=== PATIENT | male | born 1970 | race Caucasian/White ===

== ENCOUNTER 2022-04-07 12:01 | Emergency (ER) | payer OTHER, SELFPAY ==
[2022-04-07 12:12] VITALS: BP 150/85; PULSE 85; RESP 20; TEMP 36.9; O2SAT 98
[2022-04-07 12:19] VITALS: BP 150/85; PULSE 85; RESP 20; TEMP 36.9; O2SAT 98
--- NOTE | 2022-04-07 12:55 | ED.EXTPRO ---
HPI - Extremity Problem General Chief complaint: Extremity Problem,Nontraumatic Stated complaint: Right Leg Swelling Time Seen by Provider: 04/07/22 12:55 Source: patient Mode of arrival: ambulatory Limitations: no limitations History of Present Illness HPI Narrative: 51-year-old male who presents to [facility] Related Data Home Medications Medication Instructions Recorded Confirmed sertraline 100 mg tablet (Zoloft) 100 mg PO DIRECTED 04/07/22 04/07/22 testosterone cypionate 200 mg/mL 200 mg IM DIRECTED 04/07/22 04/07/22 intramuscular oil Allergies Allergy/AdvReac Type Severity Reaction Status Date / Time Penicillins Allergy Mild Hives Verified 04/07/22 12:12 [facility] Past Medical History Medical History (Updated 09/26/19 @ 00:00 by Melisa Delatorre) Anxiety Surgical History Surgical History (Updated 09/25/19 @ 11:50 by Naveen Chavez, LEOPOLDO) History of orthopedic surgery Social History Social History (Updated 09/25/19 @ 11:50 by Naveen Chavez, LEOPOLDO) Smoking status: Current every day smoker Course Vital Signs Vital signs: Vital Signs Temperature 36.9 C 04/07/22 12:12 Pulse Rate 85 04/07/22 12:12 Respiratory Rate 20 04/07/22 12:12 Blood Pressure 150/85 H 04/07/22 12:12 Pulse Oximetry 98 04/07/22 12:12 Oxygen Delivery Room Air 04/07/22 12:12 Temperature 36.9 C 04/07/22 12:19 Pulse Rate 85 04/07/22 12:19 Respiratory Rate 20 04/07/22 12:19 Blood Pressure 150/85 H 04/07/22 12:19 Pulse Oximetry 98 04/07/22 12:19 Oxygen Delivery Room Air 04/07/22 12:19 Discharge Plan Discharge Prescriptions: No Action testosterone cypionate 200 mg/mL oil 200 mg IM DIRECTED sertraline [Zoloft] 100 mg tablet 100 mg PO DIRECTED dicyclomine 10 mg capsule 10 mg PO BID Qty: 60 2RF Follow-up/Referrals: Aditya Zambrano MD [Primary Care Provider] -
--- NOTE | 2022-04-07 13:03 | ED.GENADULT ---
HPI - General Adult General Chief complaint: Extremity Problem,Nontraumatic Stated complaint: Right Leg Swelling Time Seen by Provider: 04/07/22 12:55 Source: patient Mode of arrival: ambulatory Limitations: no limitations History of Present Illness HPI narrative: 51 year old male who presents to [facility] care with complaints of some swelling to his right lower leg proximal to ankle region for the past 3 days. Patient states no know injury to area, no redness, rash or warmth to area noted. Patient denies any pain or tenderness to his right calf region with no redness or warmth noted to calf. 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 He states that skin around swelling is itchy at times. Patient has had 3 prior surgeries to his right knee. MD complaint: swelling intermittent above right ankle Onset (ago): day(s) (3) Location: right and lower extremity (above right ankle swelling area) Severity scale (1-10): 2 Quality: aching Treatments prior to arrival: none Related Data Home Medications Medication Instructions Recorded Confirmed sertraline 100 mg tablet (Zoloft) 100 mg PO DIRECTED 04/07/22 04/07/22 testosterone cypionate 200 mg/mL 200 mg IM DIRECTED 04/07/22 04/07/22 intramuscular oil Allergies Allergy/AdvReac Type Severity Reaction Status Date / Time Penicillins Allergy Mild Hives Verified 04/07/22 12:12 Review of Systems Review of Systems: CONSTITUTIONAL: Denies fever, chills, or sweats. EYES: Denies visual changes, redness, or discharge. ENT: Denies rhinorrhea, congestion, sore throat, or otalgia. CARDIOVASCULAR: Denies chest pain, palpitations, positive for small amount of swelling above right ankle area no redness or rash or warmth.. RESPIRATORY: Denies cough or dyspnea. GASTROINTESTINAL: Denies abdominal pain, nausea, vomiting, or diarrhea. GENITOURINARY: Denies dysuria or hematuria. SKIN: Denies rash or itching. reports some itching to skin around swelling with no rash or redness noted. MUSCULOSKELETAL: Denies back pain, joint pain, reports 2/10 pain to area of swelling above right ankle with no redness or warmth or rash noted NEUROLOGIC: Denies headache, numbness, or weakness. PSYCHIATRIC: Positive for history of anxiety or depression. [facility] Past Medical History Medical History (Updated 04/08/22 @ 00:00 by Melisa Delatorre) Anxiety Surgical History Surgical History (Updated 04/08/22 @ 09:40 by Flores Tim NP) History of orthopedic surgery patella tendon repair X3 right knee History of shoulder surgery total right shoulder arthroplasty with augmented glenoid component 2019 Social History Social History (Updated 04/08/22 @ 09:30 by Flores Tim NP) Smoking status: Current every day smoker Substance use type: does not use Living arrangements: with family Gender identity (if verbalized by the patient): Male Comments At time of signature, agree with nursing past medical, surgical, social and family history. There is no relevant family history pertinent to the presenting complaint Exam Narrative: GENERAL: Well-appearing, well-nourished, and in no acute distress. HEAD: Normocephalic, atraumatic. EYES: PERRLA and EOMI. ENT: Nares clear, no rhinorrhea or epistaxis. Mucous membranes moist.TM's normal with good light reflex, throat pink with no lesions or exudates or tonsil enlargement NECK: Supple.no lymphadenopathy CHEST: Clear to auscultation. No respiratory distress.SAO2 98 % on room air, no tachypnea HEART: Regular rate and rhythm. No murmur heard. Normal peripheral pulses. ABDOMEN: Soft, nontender, nondistended, normal active bowel sounds. EXTREMITIES: Normal range of motion. No edema.Exception noted to mild swelling of right lower leg proximal to ankle no redness, warmth or any rash noted. Patient reports that has been occurring for 3 days and seems to occur after b
== END 2022-04-07 13:17 | disposition home or self-care (01) ==
PROVIDERS: Emergency Provider Registered Nurse; PCP Family Medicine Adolescent Medicine
DX: R60.0 Localized edema (principal); F17.200 Nicotine dependence, unspecified, uncomplicated; F41.9 Anxiety disorder, unspecified
CPT/HCPCS: 99211; G0463

== ENCOUNTER 2023-12-30 05:50 | Day surgery (SDC) | payer OTHER, SELFPAY ==
[2023-10-26 14:02] VITALS: BMI 31.0
[2023-12-08 13:55] VITALS: BMI 30.9
--- NOTE | 2023-12-29 11:17 | P.PNAN_ITS ---
Anes - Initial Pre Proc Eval Procedure: Operation Date: 12/30/23 07:30 Proposed Procedures p Screening Colonoscopy - Darren Brar MD Date/Time: 12/29/23 11:17 Surgeon: Darren Brar MD Pre Op Diagnosis: Neoplasm Screening Patient Data Age: 53 Gender: M Height: 1.75 m Weight: 95 kg Allergies Allergy/AdvReac Type Severity Reaction Status Date / Time Penicillins Allergy Mild Hives Verified 12/30/23 06:20 Home Medications Medication Instructions Recorded Confirmed Type testosterone cypionate 200 mg/mL 200 mg IM DIRECTED 04/07/22 12/30/23 History intramuscular oil sertraline 100 mg tablet (Zoloft) 150 mg PO DIRECTED #135 tabs 07/09/23 12/30/23 Rx Patient hx anesthesia problems: none Family hx anesthesia problems: none Results Review: All pre-operative results and documents have been reviewed as part of the pre- operative evaluation. [facility] Past Medical History Medical History (Updated 12/29/23 @ 11:17 by Mark Vela DO) Anxiety GERD (gastroesophageal reflux disease) Surgical History Surgical History (Updated 04/08/22 @ 09:40 by Flores Tim NP) History of orthopedic surgery patella tendon repair X3 right knee History of shoulder surgery total right shoulder arthroplasty with augmented glenoid component 2020 Social History Social History (Updated 04/08/22 @ 09:30 by Flores Tim NP) Years smoked: 20 Smoking status: Current every day smoker Tobacco type: cigarettes Alcohol intake: current Drinks per week: 6 Substance use: never Substance use type: does not use Living arrangements: with family Gender identity (if verbalized by the patient): Male Spiritual care concerns: No Anes - Eval Final PreProcedure Day of Procedure 12/29/23 11:17 Patient weight: obese Heart: regular rate and rhythm Lungs: clear to auscultation Airway: Mallampati scale class II Neurological: alert and oriented Last oral intake: >/= 8 hours ASA classification: II Emergent: no Anesthetic plan: proceed Anesthesia type and monitoring: general GIVS and standard monitoring Results Review: All pre-operative results and documents have been reviewed as part of the pre- operative evaluation. Informed Consent: The patient's anesthetic plan and its attendant risks and benefits were discussed with the patient/family/POA. Questions were solicited and answers provided to the satisfaction of the patient/family/POA.
[2023-12-30 06:23] VITALS: BP 121/90; PULSE 83; RESP 20; TEMP 36.7; O2SAT 98; BMI 31.0
[2023-12-30] MEDS: LACTATED RINGERS 1,000 ML 150 ML IV CONT (06:34)
--- NOTE | 2023-12-30 07:07 | P.HP_ITS ---
History of Present Illness History of Present Illness Consent: Risks, benefits, and alternatives have been discussed and questions answered. Patient agrees to proceed with procedure. Chief complaint: Neoplasm Screening Narrative: Markus Durán is a 53 year old male presents for screening colonoscopy. Patient's current weight appetite and bowel movements are normal. Patient is abdominal pain. He has had no bleeding. Family history is noncontributory. Review of Systems Review of Systems: Review of systems noncontributory. [facility] Past Medical History Medical History (Updated 12/30/23 @ 07:09 by Darren Barr MD) Anxiety GERD (gastroesophageal reflux disease) Surgical History Surgical History (Updated 04/08/22 @ 09:40 by Flores Tim NP) History of orthopedic surgery patella tendon repair X3 right knee History of shoulder surgery total right shoulder arthroplasty with augmented glenoid component 2019 Social History Social History (Updated 04/08/22 @ 09:30 by Flores Tim NP) Years smoked: 20 Smoking status: Current every day smoker Tobacco type: cigarettes Alcohol intake: current Drinks per week: 6 Substance use: never Substance use type: does not use Living arrangements: with family Gender identity (if verbalized by the patient): Male Spiritual care concerns: No Meds Home Medications and Allergies Home Medications Medication Instructions Recorded Confirmed Type testosterone cypionate 200 mg/mL 200 mg IM DIRECTED 04/07/22 12/30/23 History intramuscular oil sertraline 100 mg tablet (Zoloft) 150 mg PO DIRECTED #135 tabs 07/09/23 12/30/23 Rx Allergies Allergy/AdvReac Type Severity Reaction Status Date / Time Penicillins Allergy Mild Hives Verified 12/30/23 06:20 Vital Signs Vital Signs - 24 hr 12/30/23 06:23 Temperature 98.1 F Pulse Rate 83 Respiratory Rate 20 Blood Pressure 121/90 Pulse Oximetry 98 Oxygen Delivery Room Air Exam Narrative: Physical exam reveals patient to be alert. Vital signs stable. HEENT exam is unremarkable. Patient is anicteric. Lungs are clear to auscultation and percussion is without murmur or extra sounds. Abdomen bowel sounds are present soft nontender with no organomegaly. digital external rectal exam is normal. Assessment and Plan Assessment and plan (1) Encounter for screening colonoscopy: Code(s): Z12.11 - Encounter for screening for malignant neoplasm of colon Status: Acute Assessment and Plan: Patient presents today for screening colonoscopy. He appears to be at average risk for colon polyps.
[2023-12-30 07:48] VITALS: BP 112/73; PULSE 80; RESP 16; O2SAT 97
[2023-12-30 07:58] VITALS: BP 119/82; PULSE 84; RESP 16; O2SAT 97
[2023-12-30 08:08] VITALS: BP 120/82; PULSE 73; RESP 16; O2SAT 97
--- NOTE | 2023-12-30 10:11 | WPDANESPN ---
Anes - Prog Note Post-Op Date/Time: 12/30/23 10:11 Cardiovascular status: normal Respiratory status: normal Airway patency: baseline Mental status: baseline Post-Op hydration status: normal Vital Signs: Last Vital Signs Temp 36.7 C 12/30/23 06:23 Pulse 73 12/30/23 08:08 Resp 16 12/30/23 08:08 BP 120/82 12/30/23 08:08 Pulse Ox 97 12/30/23 08:08 O2 Del Method Room Air 12/30/23 08:08 Pain Score (VAS): 0 I/O: Intake & Output 12/29/23 12/30/23 12/30/23 23:59 07:59 15:59 Intake Total 400 100 Balance 400 100 Post-procedural complaints: none Patient Feedback: Patient satisfied with anesthetic care. Other Findings: Patient vital signs back to baseline. Patient denies nausea and vomiting. Patient's pain under control. Patient OK for discharge.
== END 2023-12-30 08:18 | disposition home or self-care (01) ==
PROVIDERS: PCP Family Medicine Adolescent Medicine; Visit Provider Internal Medicine Gastroenterology
PROC: 0DJD8ZZ Inspection of Lower Intestinal Tract, Via Natural or Artificial Opening Endoscopic (ICD-10-PCS; CPT 45378; principal; 2023-12-30 07:30)
DX: Z12.11 Encounter for screening for malignant neoplasm of colon (principal); D12.8 Benign neoplasm of rectum; K64.8 Other hemorrhoids
CPT/HCPCS: 45385

== ENCOUNTER 2023-12-30 08:16 | Outpatient (NON) | payer OTHER, SELFPAY | END 2023-12-30 08:17 | disposition home or self-care (01) | PROVIDERS: PCP Family Medicine Adolescent Medicine; Visit Provider Internal Medicine Gastroenterology | DX: K62.1 Rectal polyp (principal) | CPT/HCPCS: 88305 ==

== ENCOUNTER 2024-08-09 08:16 | Outpatient (CLI) | payer OTHER, SELFPAY ==
--- NOTE | ~2024-08-09 | CT_ITS ---
CT Scan of the Chest without Contrast: Clinical Indication: Lung cancer screening, nicotine dependence Technique: Contiguous sections were acquired throughout the chest without intravenous contrast. Dose reduction technique was used on this scan by utilizing automated exposure control and iterative recon struction technique. The dose-length product (DLP) was 214.34 mGy-cm. Findings: There is no evidence of any significant mediastinal, hilar or axillary lymphadenopathy. The mediastin al soft tissues appear normal. There is no evidence of pleural or pericardial effusion. 4 mm nodule noted superior segment left lower lobe. No other pulmonary nodule seen. Images through the upper abdomen reveal no abnormalities. Impression: Lung RADS 2: Benign appearance. 12 month follow-up screening CT advised. Reviewed, dictated and finalized at location . Impression: Lung RADS 2: Benign appearance. 12 month follow-up screening CT advised.
== END 2024-08-09 08:17 | disposition home or self-care (01) ==
LOC: MICIMG 08:17
PROVIDERS: PCP Nurse Practitioner Family; Visit Provider Nurse Practitioner Family
DX: Z12.2 Encounter for screening for malignant neoplasm of respiratory organs (principal); F17.210 Nicotine dependence, cigarettes, uncomplicated
CPT/HCPCS: 71271

== ENCOUNTER 2025-06-22 08:37 | Emergency (ER) | payer OTHER, SELFPAY ==
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
--- OUTSIDE RECORDS SUMMARY | 2025-06-22 08:41 | XMS_ITS | Encounter Summary ---
Author Organization [facility] Address [address] [place] [address] Care Team Providers Care Senior Principal Process Engineer Name Role Phone Queta Adan NP Primary Care Provider [phone] Reason for Referral * Diagnostic Imaging (Routine) - Closed Specialty Diagnoses / Procedures Referred By Brian t Referred To Contact Diagnoses Left shoulder pain, unspecified chronicity Procedures XR Shoulder Left 3 Views Handy Grider PA [address] [place] [address] [address] [place] [address] Phone: tel: fax: [address] [phone] Referral ID Status Reason Start Date Expiration Date Visits Re quested Visits Authorized [id number] Closed 06/15/2025 07/15/2026 1 1 Reason for Visit * Diagnostic Imaging (Routine) - Closed Specialty Diagnoses / Procedures Referred By Brian t Referred To Contact Diagnoses Left shoulder pain, unspecified chronicity Procedures XR Shoulder Left 3 Views Handy Grider PA [facility] [address] GARDUN[address] [place] [address] Phone: tel: fax: [address] [phone] Referral ID Status Reason Start Date Expiration Date Visits Re quested Visits Authorized [id number] Closed 06/15/2025 07/15/2026 1 1 Encounter Details Date Type Department Care Team (Latest Contact Info) Description 06/21/2025 1:42 PM CDT - 06/21/2025 11:59 PM CDT Hospital Encounter [facility] Diag Imaging [address] [place] [address] Left shoulder pain, unspecified chronicity Discharge Disposition: Discharge to home or self care Social History Tobacco Use Types Packs/Day Years [...] on file 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 Gender Identity Not on file Sexual Orientation Not on file 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 file Not on file Not o n file documented as of this encounter Medications at Time of Discharge anastrozole (ARIMIDEX) 1 mg tablet 05/09/2025 armodafiniL (NUVIGIL) 150 mg tablet 05/16/2025 desvenlafaxine ER (PRISTIQ) 25 mg tablet extended release 24 hr 24 hr tablet 05/03/2025 meloxicam (MOBIC) 15 mg tabletIndications: Left shoulder pain, unspecified chronicity Take 1 tablet (15 mg total) by mouth daily 30 tablet 1 06/21/2025 07/21/2025 testosterone cypionate (DEPO-TESTOTERONE) 200 mg/mL injection 08/26/2022 documented as of this encounter Discharge Disposition Disposition Code Departure Means Destination Discharge to home or self care documented in this encounter Plan of Treatment Pending Results Name Type Priority Associated Diagnoses Date /Time XR Shoulder Left 3 Views Imaging Schedule Routine, Read Routine (OP Routine) Left shoulder pain, unspecified chronicity 06/21/2025 1:47 PM CDT Scheduled Orders Name Type Priority Associated Diagnoses Orde r Schedule XR Shoulder Left 3 Views Imaging Schedule Routine, Read Routine (OP Routine) Left shoulder pain, unspecified chronicity Once for 1 Occurrences starting 06/21/2025 until 06/21/2025 documented as of this encounter Visit Diagnoses Diagnosis Left shoulder pain, unspecified chronicity documented in this encounter Care Teams Senior Principal Process Engineer Relationship Specialty Start Date End Date Queta Adan NP [address] [address] PCP - General Internal Medicine 05/24/25 documented as of this encounter
--- OUTSIDE RECORDS SUMMARY | 2025-06-22 08:41 | XMS_ITS | Encounter Summary ---
Author Organization [facility] Healthcare Address [address] [place] [address] Care Team Providers Care Order Worker Name Role Phone Queta Adan NP Primary Care Provider [phone] Reason for Referral * Diagnostic Imaging (Routine) - Closed Specialty Diagnoses / Procedures Referred By Brian vargsa Referred To Contact Diagnoses Left shoulder pain, unspecified chronicity Procedures XR Shoulder Left 3 Views Handy Grider PA [facility] [facility] [address] [place] [address] Phone: tel: fax: [address] [address] Referral ID Status Reason Start Date Expiration Date Visits Re quested Visits Authorized [id number] Closed 06/15/2025 07/15/2026 1 1 Reason for Visit * Reason Comments Pain * Consultation (Routine) - Closed Specialty Diagnoses / Procedures Referred By Brian vargas Referred To Contact Orthopedic Surgery Diagnoses Chronic left shoulder pain Queta Adan NP [address] [address] Phone: tel: fax: Johnathon Harmon MD [address] [facility] [address] [address] [place] [address] Phone: tel: fax: Referral ID Status Reason Start Date Expiration Date V isits Requested Visits Authorized [id number] Closed Specialty Services Required 05/24/2025 06/23/2026 1 1 Encounter Details Date Type Department Care Team (Late st Contact Info) Description 06/21/2025 1:45 PM CDT Office Visit [facility] Orthopedics and Sports Medicine [address] [facility] [address] [place] [phone] Handy Grider PA [facility] [address] [place] [address] Left shoulder pain, unspecified chronicity (Primary Dx); Osteoarthritis of left glenohumeral joint Social History Tobacco Use Types Packs/Day Years [...] on file Legal Sex 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 Gender Identity Not on file Sexual Orientation Not on file 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 Not on file Not on file Not o n file documented as of this encounter Last Filed Vital Signs Vital Sign Reading Time Taken Comments Blood Pressure - - Pulse - - Temperature - - Respiratory Rate - - Oxygen Saturation - - Inhaled Oxygen Concentration - - Weight 97.5 kg (215 lb) 06/21/2025 2:00 PM CDT Height 175.3 cm (5' 9) 06/21/2025 2:00 PM CDT Body Mass Index 31.75 06/21/2025 2:00 PM CDT documented in this encounter Ordered Prescriptions Prescription Sig Dispense Quantity Refills Last Filled Start Date End Date meloxicam (MOBIC) 15 mg tabletIndications: Left shoulder pain, unspecified chronicity Take 1 tablet (15 mg total) by mouth daily 30 tablet 1 06/21/2025 07/21/2025 documented in this encounter Progress Notes * Handy Grider PA - 06/21/2025 1:45 PM CDT Images from the original note were not included. Subjective/Objective Patient ID: Markus Durán is a 55 y.o. male. Chief Complaint Patient presents with Left Shoulder - Pain HPI: This is a 55-year-old male patient new to the clinic with a history of left shoulder pain. 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 He recalls no specific injuries. He did have a right shoulder arthroplasty for severe primary osteoarthritis in the right shoulder. The patient states it is currently tolerable with the conservative management but he wanted to check to see if he had arthritis in the shoulder like he did on the right side. -Right total shoulder arthroplasty on [address] Nithin Morris Ht 175.3 cm (5' 9) Wt 97.5 kg (215 lb) BMI 31.75 kg/m?? Current Outpatient Medications Medication Sig Dispense Refill anastrozole (ARIMIDEX) 1 mg tablet armodafiniL (NUVIGIL) 150 mg tablet desvenlafaxine ER (PRISTIQ) 25 mg tablet extended release 24 hr 24 hr tablet methylPREDNISolone (MEDROL DOSEPACK) 4 mg Dosepack Take as directed on package. 21 tablet 0 testosterone cypionate (DEPO-TESTOTERONE) 200 mg/mL injection No current facility-administered medications for this visit. Review of Systems: Review of Systems Examination Vital signs reviewed. General Appearance: The patient is in no acute distress. Alert and oriented X3. Respiratory: Respirations are even and unlabored. The patient does not use accessory muscles of respiration. Psych: The patient is pleasant and cooperative and acts appropriately. Musculoskeletal: The skin over the left shoulder shows no erythema, no ecchymosis, no edema. The patient can forward flex the shoulder to 140??. He has 5/5 strength and no pain to thumbs-down resistance similar findings to [facility]'s testing. He can externally rotate to 45??. He has 5/5 strength andno pain to resistance. Negative belly press test. The patient can internally rotate to about L3-4 but this does cause him a great deal of discomfort. Good roll forming supervisor strength. Positive radial pulse. Neurologically grossly intact. X-rays of the left shoulder from 21 June 2025 shows: [id number] osteoarthritic changes of the glenohumeral joint Procedures (M25.512) Left shoulder pain, unspecified chronicity (primary encounter diagnosis) Plan: XR Shoulder Left 3 Views, meloxicam (MOBIC) 15 mg tablet (M19.012) Osteoarthritis of left glenohumeral joint Diagnoses and all orders for this visit: Left shoulder pain, unspecified chronicity (Primary) - XR Shoulder Left 3 Views; Future - meloxicam (MOBIC) 15 mg tablet; Take 1 tablet (15 mg total) by mouth daily Osteoarthritis of left glenohumeral joint Other orders - Ambulatory referral to Orthopedic Surgery Assessment/Plan We discussed the x-rays and options. I will write the patient a prescription for meloxicam 15 mg shireen taken once daily as needed, number 30, 1 refill. Tylenol and liberal icing. The patient can certainly follow up and consider a cortisone injection if so desired. I would recommend fluoroscopicallyguided. He states he is not ready for any surgical intervention until he retires in a couple of year s.. Follow up sooner as needed. Handy Grider PA-C documented in this encounter Plan of Treatment [...] (OP Routine) Left shoulder pain, unspecified chronicity Expected: 06/15/2025, Expires: 06/15/2026 documented as of this encounter Visit Diagnoses Diagnosis Left shoulder pain, unspecified chronicity- Primary Osteoarthritis of left glenohumeral joint documented in this encounter Discontinued Medications Medication Sig Discontinue Reason Start Date End Da te methylPREDNISolone (MEDROL DOSEPACK) 4 mg DosepackIndications:Chr onic left shoulder pain Take as directed on package. Patient Reported 05/24/2025 06/21/2025 documented as of this encounter Orders Outpatient Referral Count Last Ordered Date Fir st Ordered Date AMB REFERRAL TO ORTHOPEDIC SURGERY 1 2024 documented in this encounter Care Teams Order Worker Relationship Specialty Start Date End Date Queta Adan NP [address] [facility] [address] [place] [address] PCP - General Internal Medicine 05/24/25 documented as of this encounter
--- OUTSIDE RECORDS SUMMARY | 2025-06-22 08:41 | XMS_ITS | Encounter Summary ---
Author Organization [facility] Healthcare Address [address] [place] [address] Care Team Providers Care Recreation Supervisor Name Role Phone Queta Adan SOFTWARE ANALYST Primary Care Provider [phone] Encounter Details Date Type Department Care Team (Late st Contact Info) Description 06/12/2025 Results Follow-Up [facility] Medical Group Family Medicine [address] [facility] [address] [place] [address] Queta Adan, SOFTWARE ANALYST [address] [facility] [address] [place] [address] PSA screen, Lipid panel, TSH, Additional followed-up results: 2 Social History Tobacco Use Types Packs/Day Years [...] on file 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 Gender Identity Not on file Sexual Orientation Not on file documented as of this encounter Plan of Treatment Scheduled Orders Name Type Priority Associated Diagnoses Orde r Schedule Hemoglobin A1c Lab Routine Prediabetes Expected: 06/13/2025, Expires: 06/13/2026 documented as of this encounter Visit Diagnoses Diagnosis Prediabetes- Primary Other abnormal glucose documented in this encounter Care Teams Recreation Supervisor Relationship Specialty Start Date End Date Queta Adan NP [address] [facility] [address] [place] [address] PCP - General Internal Medicine 05/24/25 documented as of this encounter
--- NOTE | 2025-06-22 08:44 | ED_ITS ---
HPI - URI/Sore Throat General Chief Complaint: Upper Respiratory Infection Stated Complaint: Sore Throat Time Seen by Provider: 06/22/25 08:44 Source: patient Mode of arrival: ambulatory Limitations: no limitations History of Present Illness HPI Narrative: 55 yo M presents with nasal/sinus congestion, headaches, fatigue, low grade fever, sore throat for 6 days. Not taking any OTC meds to treat symptoms. Denies N/v/D. No SOB/CP. All systems reviewed and negative except as noted above. Related Data Home Medications ?Medication ?Instructions ?Recorded ?Confirmed ?Last Taken ?Type clomiphene citrate 50 mg tablet 50 mg PO .twice weekly 04/12/24 04/12/24 Unknown History (Clomid) testosterone cypionate 200 mg/mL 250 mg IM DIRECTED 04/12/24 04/12/24 Unknown History intramuscular oil Allergies Allergy/AdvReac Type Severity Reaction Status Date / Time Penicillins Allergy Mild Hives Verified 06/22/25 08:48 cefazolin (From Anc) Allergy Fever Verified 06/22/25 08:48 PMFSH Past Medical History Medical History (Updated 06/22/25 @ 09:10 by Lesley Modi NP) GERD (gastroesophageal reflux disease) Anxiety Surgical History Surgical History History of shoulder surgery (03/2020) total right shoulder arthroplasty with augmented glenoid component 2019 History of orthopedic surgery (2018) patella tendon repair X3 right knee Family History Family History (Updated 04/12/24 @ 10:38 by Radha Mayberry APRN) Other Heart disease Social History Social History (Updated 04/12/24 @ 11:03 by Radha Mayberry APRN) Smoking packs per day: 1 Smoking cigarettes per day: 20.0 Years smoked: 21 Smoking pack-years: 21.00 Smoking status: Current every day smoker Tobacco type: cigarettes Alcohol intake: current Drinks per week: 6 Substance use: never Substance use type: does not use Living arrangements: with family Gender identity (if verbalized by the patient): Male Spiritual care concerns: No Comments At time of signature, agree with nursing past medical, surgical, social and family history. There is no relevant family history pertinent to the presenting complaint. Exam Narrative: GENERAL: This is a well-nourished, well-developed patient, in no apparent distress. HEAD: normocephalic, atraumatic. EYES: PERRL. Sclera clear/white. Vision is grossly intact. EARS: External ears normal, auditory canals clear and without drainage, TMs normal without perforation. Hearing grossly intact. NOSE: External nose normal with Erythema with. When drainage to bilateral nares THROAT: Mucous membranes moist, mild erythema postnasal drainage NECK: Neck supple, non-tender without lymphadenopathy, masses or thyromegaly. CARDIOVASCULAR: Regular rate and rhythm without murmurs, gallops, or rubs. RESPIRATORY: Clear to auscultation. Breath sounds equal bilaterally. No wheezes, rales, or rhonchi. SKIN: warm, Dry, intact with no suspicious lesions or rash, good texture and turgor. NEURO: awake, alert, and oriented to person, place and time. There were no obvious focal neurologic abnormalities. EXTREMITIES: No joint tenderness, effusion, or edema noted. Course Course Level of Care: Express Care Visit Vital Signs Vital signs: Vital Signs Temperature 36.4 C L 06/22/25 08:45 Pulse Rate 83 06/22/25 08:45 Respiratory Rate 16 06/22/25 08:45 Blood Pressure 133/82 06/22/25 08:45 Pulse Oximetry 100 06/22/25 08:45 Oxygen Delivery Room Air 06/22/25 08:45 Temperature 36.4 C L 06/22/25 08:45 Pulse Rate 83 06/22/25 08:45 Respiratory Rate 16 06/22/25 08:45 Blood Pressure 133/82 06/22/25 08:45 Pulse Oximetry 100 06/22/25 08:45 Oxygen Delivery Room Air 06/22/25 08:45 reviewed MDM - URI/Sore Throat MDM Narrative Medical decision making narrative: negative COVID, influenza and strep. Strep culture ordered. Will treat patient with antibiotic for bacterial sinusitis due to duration of symptoms and exam findings. Patient agrees with plan of care. Differential Diagnosis Differential diagnosis: Likely upper respiratory infection, sinusitis and pharyngitis Lab Data Labs: Lab Results 06/22/25 06/22/25 Range/Units 08:54 09:12 POC Influenza A Ag Negative (Negative) POC Influenza B Ag Negative (Negative) POC Grp A Strep Screen Negative (Negative) Discharge Plan Discharge Clinical Impression: Acute bacterial sinusitis Patient Disposition: Home Condition: Stable Instructions: Antibiotic Form, Sinusitis (ED) Additional Instructions: your COVID, influenza and strep test were negative today. Take antibiotic as prescribed until gone. Drink at least 64 oz of water a day. See your doctor if symptoms are not improving. Patient Language: Swedish Prescriptions: New doxycycline hyclate 100 mg capsule 100 mg PO BID 7 Days Qty: 14 0RF No Action testosterone cypionate 200 mg/mL oil 250 mg IM DIRECTED Rx Instructions: wednesday clomiphene citrate [Clomid] 50 mg tablet 50 mg PO .twice weekly Follow-up/Referrals: Antionette,YAIMA Birch [Primary Care Provider] - Time of Disposition: 09:11
[2025-06-22 08:45] VITALS: BP 133/82; PULSE 83; RESP 16; TEMP 36.4; O2SAT 100
[2025-06-22 08:56] LABS: EDSTREPNEGPOS1 Negative (Negative)
[2025-06-22 09:14] LABS: EDINFLUASCREEN Negative (Negative); EDINFLUBSCREEN Negative (Negative)
== END 2025-06-22 09:18 | disposition home or self-care (01) ==
PROVIDERS: Emergency Provider Nurse Practitioner Family; PCP Nurse Practitioner Family
DX: J01.90 Acute sinusitis, unspecified (principal); B96.89 Other specified bacterial agents as the cause of diseases classified elsewhere; F17.210 Nicotine dependence, cigarettes, uncomplicated
CPT/HCPCS: 87081; 87804; 87880; 99213; G0463

== ENCOUNTER 2025-08-13 09:38 | Outpatient (CLI) | payer OTHER, SELFPAY ==
--- NOTE | ~2025-08-13 | CT_ITS ---
EXAMINATION:CT lung screening DATE: 08/13/2025 09:53 INDICATION: Personal history of nicotine dependence. TECHNIQUE: Computed tomography (CT) of the chest was performed without intravenous contrast. Automated exposure control and iterative reconstruction technique were employed. The dose-length product (DLP) was 60.00 mGy-cm. COMPARISON: Chest CT 08/09/2024 FINDINGS: There is a 3 mm nodule in right middle lobe. There is a 2 mm nodule in right upper lobe. No pleural effusion. The heart size is normal. No pericardial effusion. There is a right shoulder arthroplasty. There is mild thoracic spondylosis. There is mild chronic height loss of multiple vertebral bodies. IMPRESSION: 1. Lung-RADS category 2: Benign appearance or behavior. Continue annual screening with noncontrast low-dose chest CT in 12 months. Reviewed, dictated and finalized at location E. IMPRESSION: 1. Lung-RADS category 2: Benign appearance or behavior. Continue annual screeni ng with noncontrast low-dose chest CT in 12 months.
--- OUTSIDE RECORDS SUMMARY | 2025-08-13 10:32 | XMS_ITS | Clinical Summary ---
Author Organization [facility] Address [facility] [place] [address] Care Team Providers Care Trim Setter Helper Name Role Phone Aditya Zambrano MD Primary Care Provider [phone] Allergies Active Allergy Reactions Criticality Noted Date [...] 19+ 3-dose series) 1991 Pneumococcal Vaccine: 50+ Years (1 of 1 - PCV) 2022 Zoster Vaccines (1 of 2) 2022 COVID-19 Vaccine (1 - season) 2025 Influenza Adult (#1) 2025 08/09/2019, 08/10/2016, 08/28/2015, Additional history exists DTaP, Tdap and Td Vaccines (2 - Td or Tdap) 08/26/2032 08/26/2022 Meningococcal B Vaccine Aged Out No l onger eligible based on patient's age to complete this topic Meningococcal Vaccine Aged Out No alin hector eligible based on patient's age to complete this topic RSV Immunizations Under 20 Months Aged Out No longer eligible based on patient's age to complete this topic Insurance [facility] Care Teams Trim Setter Helper Relationship Specialty Start Date End Date Aditya Zambrano MD [address] [address] PCP - General FAMILY PRACTICE 07/11/24
--- OUTSIDE RECORDS SUMMARY | 2025-08-13 10:32 | XMS_ITS | Encounter Summary ---
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 Gender Identity Not on file Sexual Orientation Not on file documented as of this encounter Plan of Treatment Scheduled Orders Name Type Priority Associated Diagnoses Orde r Schedule Hemoglobin A1c Lab Routine Prediabetes Expected: 06/13/2025, Expires: 06/13/2026 documented as of this encounter Visit Diagnoses Diagnosis Prediabetes- Primary Other abnormal glucose documented in this encounter Care Teams Time Clock Inspector Relationship Specialty Start Date End Date Queta Adan NP [address] [facility] [address] [place] [address] PCP - General Internal Medicine 05/24/25 documented as of this encounter
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
== END 2025-08-13 09:39 | disposition home or self-care (01) ==
LOC: CHSIMG 09:40
PROVIDERS: PCP Nurse Practitioner Family; Visit Provider Nurse Practitioner Family
DX: Z12.2 Encounter for screening for malignant neoplasm of respiratory organs (principal); Z87.891 Personal history of nicotine dependence
CPT/HCPCS: 71271

== ENCOUNTER 2025-08-20 10:35 | Emergency (ER) | payer OTHER, SELFPAY ==
[2025-08-20 10:40] VITALS: BP 141/84; PULSE 95; RESP 20; TEMP 36.8; O2SAT 98
--- NOTE | 2025-08-20 10:45 | ED.URI ---
HPI - URI/Sore Throat General Chief Complaint: Upper Respiratory Infection Stated Complaint: cold/flu Time Seen by Provider: 08/20/25 10:46 Source: patient, RN notes reviewed and old records reviewed Mode of arrival: ambulatory Limitations: no limitations History of Present Illness HPI Narrative: 55 year old male presents to [facility] care with complaints of 2 week duration of chest congestion with cough, sinus congestion with drainage and sinus pressure and headaches intermittently. Patient reports that he has dry cough especially at night. He states that he has been taking some DayQuil during the day and also some Ibuprofen. Patient states some low grade fevers which are intermittent. Patient is daily smoker.He reports that he is going on hunting trip this weekend and wants to be swabbed to make sure he doesn't have something contagious. MD elicited complaint: cough, rhinorrhea and nasal congestion Onset (ago): week(s) (2) Severity: moderate Pain scale (0-10): 2 Description of mucous: clear Able to tolerate fluids by mouth: Yes Treatments prior to arrival: ibuprofen and other (Dayquil) Related Data Home Medications ?Medication ?Instructions ?Recorded ?Confirmed ?Last Taken ?Type clomiphene citrate 50 mg tablet 50 mg PO .twice weekly 04/12/24 04/12/24 Unknown History (Clomid) testosterone cypionate 200 mg/mL 250 mg IM DIRECTED 04/12/24 04/12/24 Unknown History intramuscular oil anastrozole 1 mg tablet mg 08/20/25 Unknown History desvenlafaxine succinate 100 mg mg PO 08/20/25 Unknown History tablet,extended release 24 hr Allergies Allergy/AdvReac Type Severity Reaction Status Date / Time Penicillins Allergy Mild Hives Verified 08/20/25 10:49 cefazolin (From [facility]) Allergy Fever Verified 08/20/25 10:49 Review of Systems Review of Systems: CONSTITUTIONAL: Reports malaise, chills, sweats, low grade fever. EYES: Denies visual changes, redness, or discharge. ENT: Reports rhinorrhea, congestion, sinus pressure, no otalgia and positive for some sore throat. CARDIOVASCULAR: Denies chest pain, palpitations, or edema. RESPIRATORY: Reports cough.? Denies dyspnea. GASTROINTESTINAL: Denies abdominal pain, nausea, vomiting, diarrhea SKIN: Denies rash or itching. MUSCULOSKELETAL: Denies myalgia. NEUROLOGIC: Positive for headache. All systems reviewed & are unremarkable except as noted in HPI and below PMFSH Past Medical History Medical History GERD (gastroesophageal reflux disease) Anxiety Surgical History Surgical History History of shoulder surgery (03/2020) total right shoulder arthroplasty with augmented glenoid component 2019 History of orthopedic surgery (2018) patella tendon repair X3 right knee Family History Family History Other Heart disease Social History Social History Smoking packs per day: 1 Smoking cigarettes per day: 20.0 Years smoked: 21 Smoking pack-years: 21.00 Smoking status: Current every day smoker Tobacco type: cigarettes Alcohol intake: current Drinks per week: 6 Substance use: never Substance use type: does not use Living arrangements: with family Gender identity (if verbalized by the patient): Male Spiritual care concerns: No Comments At time of signature, agree with nursing past medical, surgical, social and family history. There is no relevant family history pertinent to the presenting complaint Exam Narrative: GENERAL: Well-appearing, well-nourished, and in no acute distress. HEAD: Normocephalic EYES: PERRLA, conjunctivae clear ENT: Nares clear, turbinates edematous and erythematous, clear discharge. Mucous membranes moist. TM pearly markham with dull light reflex bilaterally; no tragal tenderness. Oropharynx erythematous without lesions. Tonsils not enlarged and without exudate, no drooling, no hoarseness, no trismus, uvula midline, post nasal drainage NECK: Supple. No lymphadenopathy CHEST: Clear to auscultation, breath sounds equal. No wheezing, rhonchi, rales, or stridor. No respiratory distress, speaks in full sentences. dry cough especially at night, SAO2 98% on room air HEART: Regular rate and rhythm. No murmur heard. SKIN: Warm, dry, no rash. NEURO: Alert and oriented x3. PSYCH: Normal mood and affect Course Course Emergency Course: Patient is aware of diagnosis, understands and agrees to treatment plan.? Anticipatory guidance given.? Patient agrees to follow-up as directed and is aware of reasons to seek care at the emergency department. Portions of this record may have been created with voice recognition software Level of Care: Express Care Visit Vital Signs Vital signs: Vital Signs Temperature 36.8 C 08/20/25 10:40 Pulse Rate 95 08/20/25 10:40 Respiratory Rate 20 08/20/25 10:40 Blood Pressure 141/84 H 08/20/25 10:40 Pulse Oximetry 98 08/20/25 10:40 Oxygen Delivery Room Air 08/20/25 10:40 Temperature 36.8 C 08/20/25 10:40 Pulse Rate 95 08/20/25 10:40 Respiratory Rate 20 08/20/25 10:40 Blood Pressure 141/84 H 08/20/25 10:40 Pulse Oximetry 98 08/20/25 10:40 Oxygen Delivery Room Air 08/20/25 10:40 Reviewed MDM - URI/Sore Throat MDM Narrative Medical decision making narrative: Differential diagnosis considered: Jean virus, strep pharyngitis, allergic rhinitis, upper respiratory tract infection, sinusitis, rhinosinusitis, nasopharyngitis. viral pharyngitis, otitis media, otitis externa, pneumonia, bronchitis, viral cough syndrome, viral syndrome, and influenza.? Exam findings show no acute concerns or changes; patient is non-toxic appearing and is in no distress.? Patient is appropriate for outpatient treatment and follow-up. Differential Diagnosis Differential diagnosis: Likely upper respiratory infection, sinusitis, viral infection, influenza, pharyngitis and other (cough and congestion, COVID) Medical Records Attestation: I reviewed the patient's medical records. Lab Data Attestation: I reviewed the patient's lab results. Lab results narrative: strep screen negative, culture sent, COVID antigen negative,Influenza A negative, Influenza B negative Labs: Lab Results 08/20/25 08/20/25 Range/Units 10:58 11:05 POC Influenza A Ag Negative (Negative) POC Influenza B Ag Negative (Negative) POC SARS CoV-2 Ag Negative (Negative) POC Grp A Strep Screen Negative (Negative) reviewed Critical Care Time Critical Care Time Critical Care Time: No Discharge Plan Discharge Clinical Impression: Cough in adult patient Sinusitis Qualifiers: Sinusitis location: pansinusitis Chronicity: acute Recurrence: non-recurrent Qualified Code(s): J01.40 - Acute pansinusitis, unspecified Patient Disposition: Home Condition: Stable Instructions: Antibiotic Form, Sinusitis (ED), Acute Cough (ED) Additional Instructions: Increase fluids especially juices and water Vvyk-onh-wpwvfci cough and cold medicine of your choice for your symptoms Zyrtec, Claritin or Romina daily Steroids as directed--take with food heat to the face 20-30 minutes 4-6 times a day for pain Salt water gargles, throat lozenges or throat sprays as desired Antibiotic as directed--finished the medication If your symptoms persist, change or worsen significantly before you can contact your personal physician then please, without delay, go to the emergency department for further evaluation. Follow-up with PCP in 7-10 days or sooner if needed Follow up with PCP soon in regards to your blood pressure which is elevated above threshold for referral. Blood pressure above 120/80 may indicate pre-hypertension.141/84 Patient Language: Divehi Prescriptions: New doxycycline hyclate 100 mg tablet 100 mg PO BID Qty: 14 0RF prednisone 20 mg tablet 40 mg PO DAILY 5 Days Qty: 10 0RF No Action anastrozole 1 mg tablet desvenlafaxine succinate 100 mg tablet extended release 24 hr PO testosterone cypionate 200 mg/mL oil 250 mg IM DIRECTED Rx Instructions: wednesday clomiphene citrate [Clomid] 50 mg tablet 50 mg PO .twice weekly Follow-up/Referrals: Britni,YAIMA Birch [Primary Care Provider, Unknown] Time of Disposition: 11:23 Quality Keri Coma Scale Eyes: Open Verbal: Oriented and Alert Motor: Follows Commands Keri Coma Total Score: 15
[2025-08-20 11:01] LABS: EDSTREPNEGPOS1 Negative (Negative)
[2025-08-20 11:07] LABS: EDCOVIDSCREEN Negative (Negative); EDINFLUASCREEN Negative (Negative); EDINFLUBSCREEN Negative (Negative)
--- OUTSIDE RECORDS SUMMARY | 2025-08-20 11:43 | XMS_ITS | Clinical Summary ---
Author Organization [facility] Address [address] [place] [address] Care Team Providers Care Nail Tech Name Role Phone Unknown, Provider Primary Care Provider Unavaila ble Source Comments [facility],non-owned Affiliates and Associated Physician Practices is amultiple site organization consisting of ambulatory clinics and hospital sitesin [place], [place], [place] and [place]. This disclosure is being madepursuant to the Care Everywhere program and may not contain all information available regarding this patient. 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 Low testosterone in male Overview (09/04/2021): Mantality Stress Encounters Date Type Department Care Team Description 07/25/2025 Orders Only [facility] [place] [id number] [id number] Mike Crabtree Annual physical exam - [facility], [place] from Last 3 Months Immunizations Immunization Administration Dates Next Due FLU, [...] on file 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 Gender Identity Not on file Sexual Orientation [...] FLEX SIG - COLON CA SCREENING 1972 DTAP/TDAP/TD VACCINES (1 - Tdap) 1991 HEPATITIS B VACCINE (1 of 3 - 19+ 3-dose series) 1991 PNEUMOCOCCAL VACCINE 50+ (1 of 2 - PCV) 1991 ZOSTER VACCINE (1 of 2) 2022 DEPRESSION SCREENING 11/08/2024 08/17/2024, 10/18/20 23 COVID-19 VACCINE ( - 2023- season) 2025 INFLUENZA VACCINE (#1) 2025 9, 08/10/2016, 08/28/2015, Additional history exists SCREENING FOR DIABETES 07/31/2028 , 07/28/2024, 10/18/2023, Additional history exists LIPID TESTING 07/31/2030 07/31/2025, 07/10, 09/15/2023, Additional history exists HEPATITIS C SCREENING Completed 07/31/2025, 022 HIV SCREENING Completed 07/31/2025 HIB VACCINE Aged Out No longer eligi [...] Procedure Name Priority Date/Time Associated Diagnosis Comments QUANTIFERON TB-GOLD Routine 07/31/2025 6 :40 AM CDT HEPATITIS C ANTIBODY Routine 07/31/2025 6:40 AM CDT HIV-1 HIV-2 ANTIBODY + HIV P24 AG PANEL Routine 07/31/2025 6:40 AM CDT HEPATITIS B SURFACE ANTIBODY Routine 07/31/2025 6:40 AM CDT PROSTATE SPECIFIC ANTIGEN SCREEN Routine 07/31/2025 6:40 AM CDT Annual physical exam - [facility] URINALYSIS REFLEX TO MICROSCOPIC NO CULTURE Routine 07/31/2025 6:40 AM CDT Annual physical exam - [facility] [place] LIPID PROFILE W TCHOL/HDL Routine 07/31/2025 6:40 AM CDT Annual physical exam - [facility] COMPREHENSIVE METABOLIC PANEL Routine 07/31/2025 6:40 AM CDT Annual physical exam - [facility] CBC W AUTO DIFFERENTIAL Routine 07/31/2025 6:40 AM CDT Annual physical exam - [facility] Department from Last 3 Months Results * HIV-1 HIV-2 ANTIBODY + HIV P24 AG PANEL (07/31/2025 6:40 AM CDT) [facility] HIV Screen 4th Generation w Reflex Non Reactive Non Reactive [facility] ACCOUNT BILL Comment: HIV-1/HIV-2 antibodies and HIV-1 p24 antigen were NOT detected. There is no laboratory evidence of HIV infection. HIV Negative 07/31/2025 6:40 AM CDT 07/31/2025 Narrative [facility] ACCOUNT BILL - 08/01/2025 7:09 AM CDT Performed at: [facility] [id number] Drier Operator Helper: Justus Conklin PhD, Phone: [phone] Bushra Bates MD LAB - CHEMISTRY ORDERABLES Laura l Result Performing Organization Address [facility] de Phone Number [facility] ACCOUNT BILL [address] [place] [address] * (ABNORMAL) LIPID PROFILE W TCHOL/HDL (07/31/2025 6:40 AM CDT) Cholesterol 193 100 - 199 mg/dL [facility] ACCOUNT BILL Triglycerides 165(H) 0 - 149 mg/dL [facility] ACCOUNT BILL HDL Cholesterol 39(L) >39 mg/dL [facility] ACCOUNT BILL VLDL Calculated 29 5 - 40 mg/dL [facility] ACCOUNT BILL LDL Calculated 125(H) 0 - 99 mg/dL [facility] ACCOUNT BILL Cholesterol/HDL Ratio 4.9 0.0 - 5.0 ratio [facility] ACCOUNT BILL Comment: T. Chol/HDL Ratio Men Women 1/2 Avg.Risk 3.4 3.3 Avg.Risk 5.0 4.4 2X Avg.Risk 9.6 7.1 3X Avg.Risk 23.4 11.0 Blood BLOOD SPECIMEN / Unknown 07/31/2025 6:40 AM CDT 07/31/2025 Narrative [facility] ACCOUNT BILL - 08/01/2025 7:09 AM CDT Performed at: 01 - [address] [id number] Drier Operator Helper: Justus Conklin PhD, Phone: [phone] Bushra Bates MD LAB - CHEMISTRY ORDERABLES Laura l Result Performing Organization Address [facility] Co de Phone Number [facility] ACCOUNT BILL [address] [place] [address] * URINALYSIS REFLEX TO MICROSCOPIC NO CULTURE (07/31/2025 6:40 AM CDT) Specific [place] UA 1.018 1.005 - 1.030 [facility] ACCOUNT BILL pH UA 6.5 5.0 - 7.5 [facility] ACCOUNT BILL Color UA Yellow Yellow [facility] ACCOUNT BILL Appearance Clear Clear [facility] ACCOUNT BILL Leukocyte UA Negative Negative [facility] ACCOUNT [facility]ILL Protein UA Negative Negative/Tra ce [facility] ACCOUNT BILL Glucose UA Negative Negative [facility] ACCOUNT BILL Ketone UA Negative Negative [facility] ACCOUNT BILL Occult Blood Urine Negative Negative [facility] ACCOUNT BILL Bilirubin UA Negative Negative [facility] ACCOUNT BILL Urobilinogen 0.2 0.2 - 1.0 mg/dL [facility] ACCOUNT BILL Nitrite UA Negative Negative [facility] ACCOUNT BILL Microscopic Examination Urine Comment [facility] ACCOUNT BILL Comment:Microscopic not tricia cated and not performed. Urine URINE SPECIMEN OBTAINED BY CLEAN CATCH PROCEDURE / Unknown 07/31/2025 6:40 AM CDT 07/31/2025 Narrative [facility] ACCOUNT BILL - 08/01/2025 7:09 AM CDT Performed at: [address] [place] [id number] Drier Operator Helper: Justus Conklin PhD, Phone: [phone] Bushra Bates MD LAB - URINALYSIS ORDERABLES Fin al Result [facility] ACCOUNT BILL [address] [place] [address] * QUANTIFERON TB-GOLD (07/31/2025 6:40 AM CDT) [facility] QuantiFERON Incubation Incubation performed. [facility] ACCOUNT BILL QuantiFERON-TB Gold Plus Negative Negative [facility] ACCOUNT BILL Comment: No response to M tuberculosis antigens detected. Infection with M tuberculosis is unlikely, but high risk individuals should be considered for additional testing (ATS/IDSA/CDC Clinical Practice Guidelines, 2017). The reference range is an Antigen minus Nil result of <0.35 IU/mL. Chemiluminescence immunoassay methodology Performed at: [address] [place] [id number] Drier Operator Helper: Justus Conklin PhD, Phone: [phone] QuantiFERON Criteria Comment [facility] ACCOUNT BILL Comment: QuantiFERON-TB Gold Plus is a qualitative indirect test for M tuberculosis infection (including disease) and is intended for use in conjunction with risk assessment, radiography, and other medical and diagnostic evaluations. The QuantiFERON-TB Gold Plus result is determined by subtracting the Nil value from either TB antigen (Ag) value. The Mitogen tube serves as a control for the test. QuantiFERON TB1 Ag Value 0.02 IU/mL [facility] ACCOUNT BILL QuantiFERON TB2 Ag Value 0.03 IU/mL [facility] ACCOUNT BILL QuantiFERON Nil Value 0.01 IU/mL [facility] ACCOUNT BILL QuantiFERON Mitogen Value >10.00 IU/mL [facility] ACCOUNT BILL 07/31/2025 6:40 AM CDT 07/31/2025 Narrative [facility] ACCOUNT BILL - 08/02/2025 7:09 PM CDT Performed at: [address] [id number] Drier Operator Helper: Justus Conklin PhD, Phone: [phone] us Bushra Bates MD LAB - CHEMISTRY ORDERABLES Laura tapia Result [facility] ACCOUNT BILL [address] [place] [address] * CBC WITH DIFFERENTIAL (07/31/2025 6:40 AM CDT) Pathologist [facility] WBC 6.6 3.4 - 10.8 x10E3/uL [facility] ACCOUNT BILL RBC 5.31 4.14 - 5.80 x10E6/uL [facility] ACCOUNT BILL Hemoglobin 15.5 13.0 - 17.7 g/dL [facility] ACCOUNT BILL Hematocrit 47.9 37.5 - 51.0 % [facility] ACCOUNT BILL MCV 90 79 - 97 fL [facility] ACCOUNT BILL MCH 29.2 26.6 - 33.0 pg [facility] ACCOUNT BILL MCHC 32.4 31.5 - 35.7 g/dL [facility] ACCOUNT BILL RDW 14.7 11.6 - 15.4 % [facility] ACCOUNT BILL Platelet Count 256 150 - 450 x10E3/uL [facility] ACCOUNT BILL Granulocytes % 58 Not Estab. % [facility] ACCOUNT BILL Lymphocytes % 26 Not Estab. % [facility] ACCOUNT BILL Monocytes % 12 Not Estab. % [facility] ACCOUNT BILL Eosinophils % 3 Not Estab. % [facility] ACCOUNT BILL Basophils % 1 Not Estab. % [facility] ACCOUNT BILL Granulocytes Absolute 3.8 1.4 - 7.0 x10E3/uL [facility] ACCOUNT BILL Lymphocytes Absolute 1.7 0.7 - 3.1 x10E3/uL [facility] ACCOUNT BILL Monocytes Absolute 0.8 0.1 - 0.9 x10E3/uL [facility] ACCOUNT BILL Eosinophils Absolute 0.2 0.0 - 0.4 x10E3/uL [facility] ACCOUNT BILL Basophils Absolute 0.1 0.0 - 0.2 x10E3/uL [facility] ACCOUNT BILL Immature Granulocytes 0 Not Estab. % [facility] ACCOUNT BILL Immature Granulocytes Absolute 0.0 0.0 - 0.1 x10E3/uL [facility] ACCOUNT BILL Blood BLOOD SPECIMEN / Unknown 07/31/2025 6:40 AM CDT 07/31/2025 Narrative [facility] ACCOUNT BILL - 07/31/2025 11:08 PM CDT Performed at: [address] [id number] Drier Operator Helper: Justus Conklin PhD, Phone: [phone] us Bushra Bates MD LAB - HEMATOLOGY ORDERABLES Fin al Result [facility] ACCOUNT BILL [address] [place] [address] * (ABNORMAL) COMPREHENSIVE METABOLIC PANEL (07/31/2025 6:40 AM CDT) Glucose 94 70 - 99 mg/dL [facility] ACCOUNT BILL BUN 16 6 - 24 mg/dL [facility] ACCOUNT BILL Creatinine 1.02 0.76 - 1.27 mg/dL [facility] ACCOUNT BILL eGFR by CKD-EPI 88 >59 mL/min/1.7 3 [facility] ACCOUNT BILL BUN/Creatinine Ratio 16 9 - 20 [facility] ACCOUNT BILL Sodium 141 134 - 144 mmol/L [facility] ACCOUNT BILL Potassium 4.4 3.5 - 5.2 mmol/L [facility] ACCOUNT BILL Chloride 106 96 - 106 mmol/L [facility] ACCOUNT BILL CO2 24 20 - 29 mmol/L [facility] ACCOUNT BILL Calcium 9.0 8.7 - 10.2 mg/dL [facility] ACCOUNT BILL Protein Total 6.6 6.0 - 8.5 g/dL [facility] ACCOUNT BILL Albumin 4.2 3.8 - 4.9 g/dL [facility] ACCOUNT BILL Globulin Total 2.4 1.5 - 4.5 g/dL [facility] ACCOUNT BILL Bilirubin Total 0.3 0.0 - 1.2 mg/dL [facility] ACCOUNT BILL Alkaline Phosphatase 57 47 - 123 IU/L [facility] ACCOUNT BILL Comment:Please note refere nce interval change AST 30 0 - 40 IU/L [facility] ACCOUNT BILL ALT 47(H) 0 - 44 IU/L [facility] ACCOUNT BILL Blood BLOOD SPECIMEN / Unknown 07/31/2025 6:40 AM CDT 07/31/2025 Narrative [facility] ACCOUNT BILL - 08/01/2025 7:09 AM CDT Performed at: [address] [place] [id number] Drier Operator Helper: Justus Conklin PhD, Phone: [phone] Bushra Bates MD LAB - CHEMISTRY ORDERABLES Laura l Result [facility] ACCOUNT BILL [address] [place] [address] * PROSTATE SPECIFIC ANTIGEN SCREEN (07/31/2025 6:40 AM CDT) [facility] Signature PSA 1.4 0.0 - 4.0 ng/mL [facility] ACCOUNT BILL Comment: [place] ECLIA methodology. According to the [place] [employer], Serum PSA should decrease and remain at undetectable levels after radical prostatectomy. The AUA defines biochemical recurrence as an initial PSA value 0.2 ng/mL or greater followed by a subsequent confirmatory PSA value 0.2 ng/mL or greater. Values obtained with different assay methods or kits cannot be used interchangeably. Results cannot be interpreted as absolute evidence of the presence or absence of malignant disease. Blood BLOOD SPECIMEN / Unknown 07/31/2025 6:40 AM CDT 07/31/2025 Narrative [facility] ACCOUNT BILL - 08/01/2025 7:09 AM CDT Performed at: [address] [place] [id number] Drier Operator Helper: Justus Conklin PhD, Phone: [phone] us Bushra Bates MD LAB - CHEMISTRY ORDERABLES Laura l Result Performing Organization Address [facility] Co de Phone Number [facility] ACCOUNT BILL [address] [place] [address] * HEPATITIS B SURFACE ANTIBODY (07/31/2025 6:40 AM CDT) Hepatitis B Virus Surface Antibody Non Reactive [facility] ACCOUNT BILL Comment: Non Reactive: Not immune to HBV infection. Anti-HBs undetectable or less than 10 mIU/mL. Reactive: Evidence of HBV immunity. Anti-HBs levels greater than 10 mIU/mL. 07/31/2025 6:40 AM CDT 07/31/2025 Narrative [facility] ACCOUNT BILL - 08/01/2025 7:09 AM CDT Performed at: - [address] [id number] Drier Operator Helper: Justus Conklin PhD, Phone: [phone] Bushra Bates MD LAB - CHEMISTRY ORDERABLES Laura l Result Performing Organization Address [facility] de Phone Number [facility] ACCOUNT BILL [address] [place] [address] * HEPATITIS C ANTIBODY (07/31/2025 6:40 AM CDT) Hepatitis C Antibody Non Reactive Non Reactive [facility] ACCOUNT BILL Comment: HCV antibody alone does not differentiate between previously resolved infection and active infection. Equivocal and Reactive HCV antibody results should be followed up with an HCV RNA test to support the diagnosis of active HCV infection. 07/31/2025 6:40 AM CDT 07/31/2025 Narrative [facility] ACCOUNT BILL - 08/01/2025 7:09 AM CDT Performed at: - [address] [id number] Drier Operator Helper: Justus Conklin PhD, Phone: [phone] us Bushra Bates MD LAB - CHEMISTRY ORDERABLES Laura l Result Performing Organization Address [facility] Co de Phone Number [facility] ACCOUNT BILL [address] [place] [address] from Last 3 Months Insurance * Guarantor: MARKUS DURÁN Account Type Relation to Patient Date of Phone Billing Address Personal/Family Spouse [address] [place] [address] [place] [address] CARE SELF PAY NO INSURANCE Member Subscriber Plan / Payer (Ef fective for All Dates) Name:Luis Armando Markus Anthony Member ID:Not on file Relation to Subscriber:Not on file Name:MARKUS DURÁN Subscriber ID:Not on file Address: [facility] [address] [place] [id number] Payer ID:Not on file Group ID:Not on file Type:Self Pay Address: [place], [place] CARE SELF PAY NO INSURANCE Member Subscriber Plan / Payer (Ef fective for All Dates) Name:Markus Durán Member ID:Not on file Relation to Subscriber:Not on file Name:MARKUS DURÁN Subscriber ID:Not on file Address: [address] [place], [place] [address] [place] [id number] Payer ID:Not on file Group ID:Not on file Type:Self Pay Address: [place], [place] [address] [place] [address] SELF PAY NO INSURANCE Member Subscriber Plan / Payer (Ef fective for All Dates) Name:Markus Durán Member ID:Not on file Relation to Subscriber:Not on file Name:MARKUS DURÁN Subscriber ID:Not on file Address: [facility] [place] [address] Payer ID:Not on file Group ID:Not on file Type:Self Pay Address: [place], [place] Care Teams Nail Tech Relationship Specialty Start Date End Date Unknown, Provider PCP - General 09/04/21
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
--- OUTSIDE RECORDS SUMMARY | 2025-08-20 11:43 | XMS_ITS | Clinical Summary ---
Author Organization [facility] Address [address] [place] [address] Care Team Providers Care Injection Machine Operator Name Role Phone Queta Adan NP Primary Care Provider [phone] Allergies Active Allergy Reactions Criticality Noted Date [...] (03/22/2020): Added automatically from request for surgery [id number] S/P shoulder replacement, right 03/08/2020 Exposure to environmental toxic substances 11/08 Overview (09/09/2022): Wound Care Specialist Encounters Date Type Department Care Team Description 06/21/2025 1:45 PM CDT Office Visit [facility] [address] [place] [phone] Handy Grider PA Left shoulder pain, unspecified chronicity (Primary Dx); Osteoarthritis of left glenohumeral joint 06/21/2025 1:42 PM CDT - 06/21/2025 11:59 PM CDT Hospital Encounter [facility] [address] [place] [phone] Left shoulder pain, unspecified chronicity Discharge Disposition: Discharge to home or self care 06/12/2025 Results Follow-Up [facility] [address] [place] [phone] Queta Adan NP PSA screen, Lipid panel, TSH, Additional followed-up results: 2 05/24/2025 8:30 AM CDT Office Visit [facility] [address] [place] [phone] Queta Adan NP Physical exam, annual (Primary [...] on file 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 Kit Suture - [id number] Implanted:Qty: 1 on 04/01/2020 by Nithin Morris MD at [facility] Other - see comments Right: Shoulder [employer] [id number] 11/07/2024 AR-2290 / / [id number] Description:Proximal tenodes is [facility] 6191-1-010 Simplex P Radiopaque Full Dose Cement Bone Sterile - [id number] Implanted:Qty: 1 on 04/01/2020 by Nithin Morris MD at [facility] Right: Shoulder [employer] [id number] 11/07/2021 6191-1-0 10 / / [id number] [employer] [id number] Cortiloc Augment Shoulder Right 25 D Large Component Glenoid - [id number] - [id number] Implanted:Qty: 1 on 04/01/2020 by Nithin Morris MD at [facility] Right: Shoulder [employer] [id number] 05/03/2024 [id number] 25S / [id number] / [employer] [id number] Aequalis Ascend Flex 52mm 19mm Shoulder 4mm High Offset Head - [id number] - [id number] Implanted:Qty: 1 on 04/01/2020 by Nithin Morris MD at [facility] Right: Shoulder [employer] [id number] 03/23/2024 [id number] / [id number] / [employer] [id number] Stem Humrl 70mm Press Fit Aequalis Ascend Flex Ptc 137.5d 2c - [id number] - [id number] Implanted:Qty: 1 on 04/01/2020 by Nithin Morris MD at [facility] Right: Shoulder [employer] [id number] 06/29/2023 [id number] / [id number] / Procedures Procedure Name Priority Date/Time [...] by Gigi Stringer M.D. T: Report ID: [id number] Reading Location: [id number] Procedure Note Gigi Stringer MD - 07/01/2025 [...] by Gigi Stringer M.D. T: Report ID: [id number] Reading Location: [id number] Handy [facility] IMTammi XR PROCEDURES Fin al [...] AM CDT FASTING:YES FASTING: YES Queta Adan KINDERGARTEN ASSISTANT LAB BLOOD ORDERABLES Final Re sult Performing Organization Address [facility]/ZIP Co de Phone Number [facility] [address] [place] [address] * TSH (06/01/2025 7:42 AM CDT) [facility] TSH 1.48 0.40 - 4.50 mIU/L [facility] Blood 06/01/2025 7:42 AM CDT 06/01/2025 7:43 AM CDT Narrative [facility] - 06/02/2025 7:55 AM CDT FASTING:YES FASTING: YES Queta Adan KINDERGARTEN ASSISTANT LAB BLOOD ORDERABLES Final sult Performing Organization Address [facility] Co de Phone Number [facility] [address] [place] [address] * (ABNORMAL) Hemoglobin A1c (06/01/2025 7:42 AM CDT) Pathologist [facility] Hgb A1C 5.9(H) <5.7 % of total Hgb [facility] Comment: For someone without known diabetes, [...] AM CDT FASTING:YES FASTING: YES Queta Adan KINDERGARTEN ASSISTANT LAB BLOOD ORDERABLES Final Re sult Performing Organization Address [facility]/ZIP Co de Phone Number [facility] [address] [place] [address] * (ABNORMAL) Lipid panel (06/01/2025 7:42 AM CDT) [facility] Cholesterol 208(H) <200 mg/dL [facility] HDL 53 > OR = 40 mg/dL [facility] Triglycerides 83 <150 mg/dL [facility] LDL 137(H) mg/dL (calc) [facility] Comment: Reference range: <100 Desirable range <100 mg/dL for primary prevention; <70 mg/dL for patients with CHD or diabetic patients with > or = 2 CHD risk factors. LDL-C is now calculated using the Derrick-Radha calculation, which is a validated novel method providing better accuracy than the Friedewald equation in the estimation of LDL-C. Derrick SS et al. RENE. 2013;310(19): 3284-6203 (http://education.[employer]/faq/IDA199) Chol/HDL ratio 3.9 <5.0 (calc) [facility] Non-HDL, (LDL+VLDL) 155(H) <130 mg/dL (calc) [facility] Comment: For patients with diabetes plus 1 major ASCVD risk factor, treating to a non-HDL-C goal of <100 mg/dL (LDL-C of <70 mg/dL) is considered a therapeutic option. Blood 06/01/2025 7:42 AM CDT 06/01/2025 7:43 AM CDT Narrative [facility] - 06/02/2025 7:55 AM CDT FASTING:YES FASTING: YES Queta Adan KINDERGARTEN ASSISTANT LAB BLOOD ORDERABLES Final Re sult Performing Organization Address City/[facility]/ZIP Co de Phone Number [facility] [address] [place] [address] * (ABNORMAL) Comprehensive metabolic panel (06/01/2025 7:42 AM CDT) Glucose 121(H) 65 - 99 mg/dL [facility] Comment: Fasting reference interval For someone without known diabetes, a glucose value between 100 and 125 mg/dL is consistent with prediabetes and should be confirmed with a follow-up test. BUN 18 7 - 25 mg/dL [facility] Creatinine 1.01 0.70 - 1.30 mg/dL [facility] eGFR 89 > OR = 60 mL/min/1.7 3m2 [facility] BUN/creat ratio SEE NOTE: 6 - 22 (calc) [facility] Comment: Not Reported: BUN and Creatinine are within reference range. Sodium 139 135 - 146 mmol/L [facility] Potassium, pl 4.1 3.5 - 5.3 mmol/L [facility] Chloride 104 98 - 110 mmol/L [facility] CO2 28 20 - 32 mmol/L [facility] Calcium 9.1 8.6 - 10.3 mg/dL [facility] Protein, sr 7.2 6.1 - 8.1 g/dL [facility] Albumin 4.4 3.6 - 5.1 g/dL [facility] GLOBULIN 2.8 1.9 - 3.7 g/dL (calc) [facility] Alb/glob ratio 1.6 1.0 - 2.5 (calc) [facility] Bilirubin, total 0.5 0.2 - 1.2 mg/dL [facility] Alk phos 56 35 - 144 U/L [facility] AST 26 10 - 35 U/L [facility] ALT (SGPT) 40 9 - 46 U/L [facility] Blood 06/01/2025 7:42 AM CDT 06/01/2025 7:43 AM CDT Narrative [facility] - 06/02/2025 7:55 AM CDT FASTING:YES FASTING: YES us Queta Adan NP LAB BLOOD ORDERABLES Final Re sult [facility] Organization Address City/State/ZIP Co de Phone Number [facility] [address] [place] [address] from Last 3 Months Insurance [facility] H[facility]PPO Address: [address] [address] [place] [address] [employer] H[employer] [facility] H[facility]/PPO Address: [address] [address] [place] [address] [facility] H[facility]/PPO Address: [address] [address] [place] [id number] Advance Directives For more information, please contact: [phone] * Full Code (Latest Code Status on File) Date Activated Date Inactivated Comments 04/01/2020 5:34 PM 04/02/2020 11:29 PM Care Teams Injection Machine Operator Relationship Specialty Start Date End Date Queta Adan NP [address] [address] PCP - General Internal Medicine 05/24/25
== END 2025-08-20 11:25 | disposition home or self-care (01) ==
PROVIDERS: Emergency Provider Registered Nurse; PCP Nurse Practitioner Family
DX: R05.9 Cough, unspecified (principal); J01.40 Acute pansinusitis, unspecified; Z20.822 Contact with and (suspected) exposure to COVID-19; F17.210 Nicotine dependence, cigarettes, uncomplicated; K21.9 Gastro-esophageal reflux disease without esophagitis
CPT/HCPCS: 87081; 87426; 87804; 87880; 99213; G0463